=== PATIENT | female | born 1970 | race Caucasian/White ===

== ENCOUNTER → 2022-04-30 | Outpatient (CLI) | payer OTHER ==
[~2022-04-30] MED LIST: ALTA10CA; BACL10TA2; D3-5CAP PO; DULO1CAP6 PO; EXCETAB; FIORICET; GABA600T4 PO; HYDR12.55 PO; LUNE2TAB; METO1TAB87 PO; MULTIVIT; RAMI1CAP26 PO; SENN8.6T5; VENL100T; effexor; savella; tekturna
== END ==
LOC: M LABSMTC 11:51
PROVIDERS: ATTEND Anesthesiology
DX: Z01.812 Encounter for preprocedural laboratory examination (principal); Z11.52 Encounter for screening for COVID-19

== ENCOUNTER 2022-05-04 07:50 | Day surgery (SDC) | payer OTHER ==
[~2022-05-04] VITALS: Ht 162.6 cm; Wt 93.0 kg
[~2022-05-04 07:50] MED LIST changes: +NS 1,000 ML IV ONE
[2022-05-04] MEDS ORDERED: propofoL 200 MG/20 ML VIAL As Ordered ONE (09:09)
[2022-05-04] MEDS ORDERED: LIDOCAINE 2% 100MG/5ML SDV (FOR ANES.) As Ordered ONE (09:10)
[2022-05-04 10:00] VITALS: BP 122/79
== END 2022-05-04 08:42 | disposition home or self-care (01) ==
LOC: M OPP 07:50
PROVIDERS: ATTEND Internal Medicine Gastroenterology
DX: Z12.11 Encounter for screening for malignant neoplasm of colon (principal); K64.8 Other hemorrhoids; Z79.1 Long term (current) use of non-steroidal anti-inflammatories (NSAID); Z79.891 Long term (current) use of opiate analgesic; Z79.899 Other long term (current) drug therapy; I10 Essential (primary) hypertension; G43.909 Migraine, unspecified, not intractable, without status migrainosus; F32.9 Major depressive disorder, single episode, unspecified; E78.00 Pure hypercholesterolemia, unspecified

== ENCOUNTER → 2023-09-13 | Outpatient (REF) | payer OTHER ==
[~2023-09-13] MED LIST changes: -NS 1,000 ML IV ONE
== END ==
LOC: M LAB REF 17:17
PROVIDERS: ATTEND Internal Medicine Endocrinology, Diabetes & Metabolism
DX: E04.2 Nontoxic multinodular goiter (principal)